=== PATIENT | male | born 1965 | race Caucasian/White ===

== ENCOUNTER 2023-05-08 08:37 | Day surgery (SDC) | payer MEDICARE ==
[2023-05-08] VITALS (10 sets, daily range): BP systolic 107–130; BP diastolic 61–80; PULSE 62–82; RESP 15–16
[~2023-05-08 08:37] MED LIST: 0.9%NACL 1000ML 1,000 ML IV ONE; CETI10TA87 PO; DIAZ10TA4 PO; DOCU100C33 PO; KETO15CR2 TP; LINA290C PO; LORA2TAB2 PO; MIRT-118 PO; ONDA4TAB7 PO; PANT40TA PO; QUETIAPINE PO; RISP2TAB86 PO
[2023-05-08] MEDS ORDERED: PROPOFOL 10 MG/ML 20ML VIAL IV ONE (10:54)
== END 2023-05-08 12:10 | disposition home or self-care (01) ==
LOC: DAH 08:37 → ENDO 08:37
PROVIDERS: ATTEND Internal Medicine Gastroenterology
DX: R63.4 Abnormal weight loss (principal); K29.50 Unspecified chronic gastritis without bleeding; R10.10 Upper abdominal pain, unspecified; K76.0 Fatty (change of) liver, not elsewhere classified; K59.04 Chronic idiopathic constipation; K57.30 Diverticulosis of large intestine without perforation or abscess without bleeding; Z68.23 Body mass index [BMI] 23.0-23.9, adult
CPT/HCPCS: 43239; J7030 ×2; J2704; A4620; A4215 ×2; A4223; A7002; A4222; A4221; A4663; A4216; A4606; J3490

== ENCOUNTER → 2023-05-24 | Outpatient (CLI) | payer MEDICARE ==
[~2023-05-24] MED LIST changes: -0.9%NACL 1000ML 1,000 ML IV ONE
[2023-05-24 12:28] LABS: CREATININE 1.1 mg/dL (0.5-1.5)
== END | disposition home or self-care (01) ==
LOC: LAB 11:20
PROVIDERS: ATTEND Internal Medicine Gastroenterology
DX: R63.4 Abnormal weight loss (principal)
CPT/HCPCS: 36415; 82565; 84520

== ENCOUNTER → 2023-05-28 | Outpatient (CLI) | payer MEDICARE ==
[~2023-05-28] MED LIST changes: +IOHEXOL 350 MG/ML 100ML INFUS..BTL IV ONE
== END | disposition home or self-care (01) ==
LOC: RAH 10:10
PROVIDERS: ATTEND Internal Medicine Gastroenterology
DX: C17.0 Malignant neoplasm of duodenum (principal); R63.4 Abnormal weight loss
CPT/HCPCS: 74178; Q9967